=== PATIENT | male | born 1990 | race Two or more races ===

== ENCOUNTER 2024-08-24 19:43 | Emergency (ER) | payer MEDICAID, SELFPAY ==
[2024-08-24 19:44] VITALS: BMI 30.5
[2024-08-24 19:53] VITALS: BP 123/84; PULSE 105; RESP 20; TEMP 37.1; O2SAT 98
--- NOTE | 2024-08-24 20:22 | XR_ITS ---
Examination: PA lateral chest 2 views TECHNIQUE: Upright PA lateral chest 2 views Examination type: August 24, 2024 2116 hours INDICATIONS: Coughing and fever beginning 2 days ago. FINDINGS: Early left base pneumonia Normal heart size Reduced respiratory effort Prominent osteopenia IMPRESSION: Early bibasilar pneumonia
--- NOTE | 2024-08-24 20:27 | PD.EDRME ---
Rapid Medical Screening Exam RME Arrival date/time: 08/24/24 19:43 Chief Complaint: Headache Time Seen by Provider: 08/24/24 20:04 Vital signs: Vital Signs Temperature 98.7 F 08/24/24 19:53 Pulse Rate 105 H 08/24/24 19:53 Respiratory Rate 20 08/24/24 19:53 Blood Pressure 123/84 08/24/24 19:53 Pulse Oximetry (%) 98 08/24/24 19:53 Oxygen Delivery Method Room Air 08/24/24 19:53 Vital signs reviewed by provider: Yes RME Narrative: 34-year-old male presents to the ED with complaint of fever, chills, body aches, fatigue, found runny nose, nasal congestion, sinus pressure and drainage, cough with green sputum and nausea. He has been ill for 4 to 7 days. He checked a COVID test which was negative.
[2024-08-24] MEDS: ACETAMINOPHEN 325 MG TABLET 650 MG PO (20:52)
[2024-08-24 22:09] LABS: Strep A Rapid Negative (Negative)
[2024-08-24] MEDS: cefTRIAXone 1,000 MG, LIDOCAINE 1% 20 ML 2.1 ML IM (22:22)
--- NOTE | 2024-08-24 23:00 | EDNOTE_ITS ---
ED General RME/HPI General Chief complaint: Headache Stated complaint: HEADACHE/BODYACHES AND COUGH X 1WK Time Seen by Provider: 08/24/24 20:04 Arrival date/time: 08/24/24 19:43 RME / HPI RME / HPI narrative: 34-year-old male presents to the ED with complaint of fever, chills, body aches, fatigue, found runny nose, nasal congestion, sinus pressure and drainage, cough with green sputum and nausea. He has been ill for 4 to 7 days. He checked a COVID test at home which was negative. Related Data Previous Rx's ?Medication ?Instructions ?Recorded albuterol sulfate 90 mcg/actuation 2 inh inhalation QI D PRN shortness 11/08/23 aerosol inhaler of breath or wheezing #8.5 g lesley cefdinir 300 mg capsule 300 mg PO BID #14 caps 11/07 metformin 1,000 mg tablet,extended 1,000 mg PO QDAY #3 0 tabs 11/08/23 release 24hr (osmotic) amoxicillin 875 mg-potassium 1 tab PO Q12H #14 tabs clavulanate 125 mg tablet doxycycline monohydrate 100 mg 100 mg PO BID #14 caps 11/16/23 capsule ibuprofen 600 mg tablet 600 mg PO Q8H PRN pain #14 t abs 11/16/23 albuterol sulfate 90 mcg/actuation 2 inh inhalation Q4 H PRN shortness 08/24/24 aerosol inhaler of breath or wheezing #8.5 g lesley azithromycin 250 mg tablet See Rx Instructions PO .COM PLEX #6 08/24/24 (Zithromax Z-Kendrick) tabs Allergies Allergy/AdvReac Type Severity Reaction Status Date / Time No Known Allergies Allergy Verified 11/15/23 19:37 Review of Systems Review of Systems Systems Reviewed: All systems reviewed, normal except as documented Past Medical History Past Medical History NEUROLOGIC: Negative Neurological Disorders CARDIAC: Negative Cardiac Disorders or Congestive Heart Failure RESPIRATORY: Negative Chronic Obstructive Pulmonary Disease (COPD) GASTROINTESTINAL: Negative Gastrointestinal Disorders GENITOURINARY: Negative Genitourinary Disorders or Renal Disease MUSCULOSKELETAL: Negative Musculoskeletal Disorders ENDOCRINE: Negative Endocrine Disorders, Diabetes Mellitus Type 1 or Diabetes Mellitus Type 2 Social History SMOKING STATUS: Never smoker ED Exam Narrative Physical exam: Alert and oriented 34-year-old male, afebrile and nontoxic-appearing. No acute distress. Lungs are diminished at the bases, mild tachycardia at 105. Respiratory rate of 20 and nonlabored, temperature 98.7, O2 sat 97% on room air. No pain with AP or lateral chest compression. Neck is supple, no adenopathy. TMs and pharynx are without erythema. No sinus tenderness. Abdomen is soft and nontender. Moves all extremities well. No edema noted. Course Course Course Narrative: COVID and influenza A/B swabs are negative. Strep screen is also negative. Chest x-ray reveals: Early bibasilar pneumonia, per radiologist. Patient was given Tylenol 650 mg p.o. as well as ceftriaxone 1 g IM with lidocaine 1%. He was discharged home in stable and improved condition with a prescription for a Z-Kendrick as well as an albuterol inhaler. He was advised to follow-up with his primary care physician in 24 to 48 hours. He was encouraged to return to the ED for any new or worsening symptoms. Quality Measures none Orders Category Date Time Status Bedside COVID-19 Antigen Test NOW Care 08/24/24 20:20 Completed Bedside Influenza A&B Antigen Test NOW Care 08/24/24 20:20 Completed XR chest 2V Stat Exams 08/24/24 20:22 Completed Strep A Rapid Stat Lab 08/24/24 20:27 Completed Acetaminophen Tab [Tylenol Tab] Med 08/24/24 20:20 Discontinued 650 mg PO X1 ONE cefTRIAXone [Rocephin] 1,000 mg Med 08/24/24 22:00 Discontinued Lidocaine 1% 20 ml [Xylocaine 1% 20 ML] 2.1 ml IM X1 Vital Signs Vital signs: Vital Signs Temperature 98.7 F 08/24/24 19:53 Pulse Rate 105 H 08/24/24 19:53 Respiratory Rate 20 08/24/24 19:53 Blood Pressure 123/84 08/24/24 19:53 Pulse Oximetry (%) 98 08/24/24 19:53 Oxygen Delivery Method Room Air 08/24/24 19:53 Discharge Plan Plan Patient Disposition: HOME (Self Care) Discharge Disposition comment: Stable and improved Prescriptions/Referrals Prescriptions/Med Rec: New azithromycin [Zithromax Z-Kendrick] 250 mg tablet See Rx Instructions .ROUTE .COMPLEX Qty: 6 0RF Rx Instructions: For 250 mg dose pack: take 500 mg today (day 1), then 250 mg for 4 days (days 2-5) albuterol sulfate 90 mcg/actuation HFA aerosol inhaler 2 inh inhalation Q4H PRN (Reason: shortness of breath or wheezing) Qty: 8.5 0RF No Action albuterol sulfate 90 mcg/actuation HFA aerosol inhaler 2 inh inhalation QID PRN (Reason: shortness of breath or wheezing) Qty: 8.5 0RF metformin 1,000 mg tablet extended release 24hr 1,000 mg PO QDAY Qty: 30 0RF cefdinir 300 mg capsule 300 mg PO BID Qty: 14 0RF amoxicillin-pot clavulanate 875-125 mg tablet 1 tab PO Q12H Qty: 14 0RF doxycycline monohydrate 100 mg capsule 100 mg PO BID Qty: 14 0RF ibuprofen 600 mg tablet 600 mg PO Q8H PRN (Reason: pain) Qty: 14 0RF Referrals: Colin Ortez [Primary Care Provider] - In 1 week Problem List Clinical Impression: Pneumonia Patient/Caregiver Discharge Instructions Education Materials: ED Pneumonia (Adult) Additional Instructions: Take the medications as prescribed and complete the course even though you may be feeling better. Follow-up with your primary care physician in 24 to 48 hours. Return to the ED for any new or worsening symptoms. Print Language: Urdu Stand Alone Forms: Ifrah Award Info., Patient Portal Info Letter PA/BERTO Supervising Physician PA/MANGLE OPERATOR GARMENTS Supervising Physician: Dr. Wisam MUNIZ Narrative [facility] hospital course: 34-year-old male presents to the ED with complaint of fever, chills, body aches, fatigue, found runny nose, nasal congestion, sinus pressure and drainage, cough with green sputum and nausea. He has been ill for 4 to 7 days. He checked a COVID test at home which was negative. Alert and oriented 34-year-old male, afebrile and nontoxic-appearing. No acute distress. Lungs are diminished at the bases, mild tachycardia at 105. Respiratory rate of 20 and nonlabored, temperature 98.7, O2 sat 97% on room air. No pain with AP or lateral chest compression. Neck is supple, no adenopathy. TMs and pharynx are without erythema. No sinus tenderness. Abdomen is soft and nontender. Moves all extremities well. No edema noted. COVID and influenza A/B swabs are negative. Strep screen is also negative. Chest x-ray reveals: Early bibasilar pneumonia, per radiologist. Patient was given Tylenol 650 mg p.o. as well as ceftriaxone 1 g IM with lidocaine 1%. He was discharged home in stable and improved condition with a prescription for a Z-Kendrick as well as an albuterol inhaler. He was advised to follow-up with his primary care physician in 24 to 48 hours. He was encouraged to return to the ED for any new or worsening symptoms. Procedures done or offered: As noted above Clinical Information Provided by patient Medical Records Reviewed None Meds/Rx Considered, not Ordered None Describe details: N/A Labs/Rad/Tests considered, not Ordered None Describe details: N/A Chronic Illness/Social Conditions which may negatively complicate care or outcome(s)-explain: None or not applicable EKG EKG not done Lab Interpretation Labs: interpreted by nh Lab(s) interpretation(s): As noted above Imaging Imaging interpretation: see narrative above Radiology reports / interpretation(s): As noted above Medication Administration(s) Medication Administration History Discontinued Medications Acetaminophen (Acetaminophen 325 Mg Tablet) 650 mg PO X1 ONE Stop: 08/24/24 20:21 Last Admin: 08/24/24 20:52 Dose: 650 mg Documented By: ALVIN Ceftriaxone Sodium 1,000 mg/ (Lidocaine HCl 2.1 ml) 0 mg IM X1 ONE Stop: 08/24/24 22:01 Last Admin: 08/24/24 22:22 Dose: 1,000 mg Documented By: OA As noted above Diagnosis Differential diagnosis: Bronchitis, COVID, influenza, pneumonia, asthma Differential dx and/or dx ruled out: COVID, influenza Most likely dx, and/or detailed dx discussion: Bilateral pneumonia Dispositon Disposition comments: Patient is stable for discharge.
== END 2024-08-24 23:52 | disposition home or self-care (01) ==
PROVIDERS: Physician Assistant; Emergency Provider Emergency Medicine; PCP Physician Assistant
DX: J18.9 Pneumonia, unspecified organism (principal)
CPT/HCPCS: 71046; 87400; 87651; 87811; 96372; 99283; J0696; J3490; A9270